=== PATIENT | female | born 2000 | race Caucasian/White ===

== ENCOUNTER 2019-09-04 21:21 | Emergency (ER) | payer SELFPAY ==
[2019-09-04] MEDS ORDERED: NORMAL SALINE 1000 ML 1,000 ML IV ONE (23:07)
[2019-09-04] MEDS ORDERED: ONDANSETRON HCL INJ/PF 4 MG/2 ML SDV IV ONE (23:07)
--- NOTE | 2019-09-04 23:07 | ER Document Report ---
ED General - General Chief Complaint: Nausea/Vomiting Stated Complaint: NAUSEA/VOMITING/DIARRHEA Time Seen by Provider: 09/04/19 23:06 Mode of Arrival: Ambulatory Information source: Patient Notes: rn notes 09/04/19 21:42 - ED Nursing Note by CATRACHO CALDERON Acccrow Num: [id number] : 2000 Patient Age: 19 Pt. reports to the ED via POV with C/O N/V. Pt. reports that she was drinking last night and today around 2pm she began feeling nauseous and throwing up. Pt. reports headache, chills and diarrhea today as well. pt. HX of IBS. pt. takes probiotics and sertraline. pt. alert and oriented x4. respirations even and unlabored. my notes 19-year-old female arrives with chief complaint of vomiting at least 5 times since 1400 today. She reports her vomitus is yellow in color now. She has epigastric pain. Last night she drank 3 tequila shots and drink 4 beers. She reports she usually drinks beer but does not usually drink tequila. She denies any prior history of similar symptoms. He denies any . She denies any trauma abuse prior history of PUD prior history of any ulcerative colitis or colitis of any kind. She denies any UTI history. TRAVEL OUTSIDE OF THE [place] IN LAST 30 DAYS: No - HPI Onset: This afternoon Onset/Duration: Sudden, Persistent, Worse Quality of pain: Achy Severity: Mild Pain Level: 1 Associated symptoms: Nausea, Vomiting Exacerbated by: Food Relieved by: Remaining still Similar symptoms previously: No Recently seen / treated by doctor: No - Related Data Allergies/Adverse Reactions: No Known Allergies Allergy (Verified 09/04/19 21:40) Past Medical History - General Information source: Patient - Social History Smoking Status: Never Smoker Cigarette use (# per day): No Chew tobacco use (# tins/day): No Smoking Education Provided: No Frequency of alcohol use: Social Drug Abuse: None Lives with: Family Family History: Reviewed & Not Pertinent Patient has suicidal ideation: No Patient has homicidal ideation: No Review of Systems - Review of Systems Constitutional: See HPI, Weakness EENT: No symptoms reported Cardiovascular: No symptoms reported Respiratory: No symptoms reported Gastrointestinal: See HPI, Nausea, Vomiting Genitourinary: No symptoms reported Female Genitourinary: No symptoms reported Musculoskeletal: No symptoms reported Skin: No symptoms reported Hematologic/Lymphatic: No symptoms reported Neurological/Psychological: No symptoms reported Physical Exam - Vital signs Vitals: Temp Pulse Resp BP Pulse Ox 98.9 F 86 16 134/61 H 100 09/04/19 21:25 09/04/19 21:25 09/04/19 21:25 09/04/19 21:25 09/04/19 21:25 Interpretation: Normal - General General appearance: Alert - HEENT Head: Normocephalic, Atraumatic Eyes: Normal Pupils: PERRL - Respiratory Respiratory status: No respiratory distress Chest status: Nontender Breath sounds: Normal Chest palpation: Normal - Cardiovascular Rhythm: Regular Heart sounds: Normal auscultation Murmur: No - Abdominal Inspection: Normal Distension: No distension Bowel sounds: Hyperactive Tenderness: Tender - epigastric - Rectal Hemorrhoids: Other - deferred - Genitourinary Speculum exam: Other - deferred - Back Back: Normal - Extremities General upper extremity: Normal inspection, Nontender, Normal color, Normal ROM, Normal temperature General lower extremity: Normal inspection, Nontender, Normal color, Normal ROM, Normal temperature, Normal weight bearing. No: Nya's sign - Neurological Neuro grossly intact: Yes Cognition: Normal Orientation: AAOx4 Ghada Coma Scale Eye Opening: Spontaneous [place]ada Coma Scale Verbal: Oriented [place] Coma Scale Motor: Obeys Commands Ghada Coma Scale Total: 15 Speech: Normal Motor strength normal: LUE, RUE, LLE, RLE Sensory: Normal - Psychological Associated symptoms: Normal affect - Skin Skin Temperature: Warm Skin Moisture: Dry Course - Vital Signs Vital signs: Temp Pulse Resp BP Pulse Ox 98.1 F 75 20 107/45 L 100 09/05/19 00:52 09/05/19 00:52 09/05/19 00:52 09/05/19 00:52 09/05/19 00:52 - Laboratory Result Diagrams: 09/05/19 00:25 09/05/19 00:25 Laboratory results interpreted by me: 09/05/19 09/05/19 00:10 00:25 Seg Neutrophils % 79.3 H Urine Protein 30 H Urine Ketones 80 H Urine Blood SMALL H Critical Care Note - Critical Care Note Total time excluding time spent on procedures (mins): 90 Discharge - Discharge Clinical Impression: Alcoholic gastritis Qualifiers: Chronicity: acute Gastritis bleeding: without bleeding Qualified Code(s): K29.20 - Alcoholic gastritis without bleeding Vomiting Qualifiers: Vomiting type: unspecified Vomiting Intractability: non-intractable Nausea presence: with nausea Qualified Code(s): R11.2 - Nausea with vomiting, unspecified Condition: Good Disposition: HOME, SELF-CARE Additional Instructions: Follow-up with personal doctor this week return to ER as needed take medicines as directed encourage fluids and avoid alcohol if possible for the next several weeks. Prescriptions: Famotidine [Pepcid 20 mg Tablet] 20 mg PO BID #12 tablet Forms: Return to Work
[2019-09-04] MEDS ORDERED: FAMOTIDINE INJ/PF 20 MG/2 ML SDV IV ONE (23:47)
[2019-09-04] MEDS ORDERED: SUCRALFATE 1 GM TABLET PO ONE (23:49)
[2019-09-05 00:33] LABS: APPEARANCE,URINE CLEAR; BILIRUBIN,URINE NEGATIVE (NEGATIVE); COLOR,URINE YELLOW; GLUCOSE, URINE NEGATIVE (NEGATIVE); KETONES,URINE 80 mg/dL (NEGATIVE); LEUKOCYTE ESTERASE,URINE NEGATIVE (NEGATIVE); NITRITE,URINE NEGATIVE (NEGATIVE); PROTEIN,URINE 30 mg/dL (NEGATIVE); URINE SPECIFIC GRAVITY 1.031; UROBILINOGEN,URINE NEGATIVE mg/dL (<2.0)
[2019-09-05 00:35] LABS: ABSOLUTE LYMPHOCYTES (AUTO) 1.3 10^3/uL (0.5-4.7); ABSOLUTE MONOCYTES (AUTO) 0.2 10^3/uL (0.1-1.4); ABSOLUTE NEUT (AUTO) 6.1 10^3/uL (1.7-8.2); BASOPHILS % (AUTO) 0.5 % (0-2); HEMATOCRIT 37.3 % (36.0-47.0); LYMPHOCYTES % (AUTO) 17.1 % (13-45); MEAN CORPUSCULAR HEMOGLOBIN 31.5 pg (27.0-33.4); MEAN CORPUSCULAR HGB CONC 34.9 g/dL (32.0-36.0); MEAN CORPUSCULAR VOLUME 90 fl (80-97); MONOCYTES % (AUTO) 3.1 % (3-13); PLATELET COUNT 230 10^3/uL (150-450); RED BLOOD COUNT 4.14 10^6/uL (3.72-5.28); RED CELL DISTRIBUTION WIDTH 12.5 % (11.5-14.0); SEGMENTED NEUTROPHILS % (AUTO) 79.3 % (42-78); TOTAL CELLS COUNTED % (AUTO) 100 %; WHITE BLOOD COUNT 7.6 10^3/uL (4.0-10.5)
[2019-09-05 00:57] VITALS: BP 107/45
[2019-09-05 01:03] LABS: ALBUMIN 4.2 g/dL (3.5-5.0); ALKALINE PHOSPHATASE 56 U/L (38-126); ANION GAP 9 (5-19); ASPARTATE AMINO TRANSFERASE 26 U/L (14-36); BILIRUBIN,TOTAL 0.7 mg/dL (0.2-1.3); BLOOD UREA NITROGEN 16 mg/dL (7-20); CALCIUM 8.5 mg/dL (8.4-10.2); CARBON DIOXIDE 24 mmol/L (22-30); CHLORIDE 105 mmol/L (98-107); GLUCOSE 87 mg/dL (75-110); TOTAL PROTEIN 7.1 g/dL (6.3-8.2)
== END 2019-09-05 01:30 | disposition home or self-care (01) ==
LOC: ER 21:21
DX: K29.20 Alcoholic gastritis without bleeding (principal); R11.2 Nausea with vomiting, unspecified; R19.7 Diarrhea, unspecified; R51 Headache; R68.83 Chills (without fever); R10.13 Epigastric pain; R53.1 Weakness
CPT/HCPCS: 99285; 96361; 96374; 96375; 36415; 84703; 85025; 80053; 81001; J2405; J7030; S0028